=== PATIENT | female | born 1960 | race African-American/Black ===

== ENCOUNTER 2017-02-22 10:27 | Day surgery (SDC) | payer MEDICAID ==
[~2017-02-22] VITALS: Ht 160 cm; Wt 112.0 kg
[2017-02-22] MEDS ORDERED: METF10002 PO (10:42)
[2017-02-22] MEDS ORDERED: HYDR25TA PO (10:42)
[2017-02-22] MEDS ORDERED: IBUP-1509 PO (10:42)
[2017-02-22] MEDS ORDERED: LOVA40TA73 PO (10:42)
[2017-02-22] MEDS ORDERED: CYCLOPENTOLATE HCL 1% OPHTH DROPS 2ML LEFTEYE ONE (11:45)
[2017-02-22] MEDS ORDERED: TROPICAMIDE 1% OPHTH DROPS 15ML LEFTEYE ONE (11:45)
[2017-02-22] MEDS ORDERED: PHENYLEPHRINE HCL 10% OPHTH DROPS 5ML LEFTEYE ONE (11:45)
[2017-02-22] MEDS ORDERED: SODIUM CHLORIDE 0.9% 1,000 ML IV SCH (11:55)
[2017-02-22] MEDS ORDERED: LEVO25TA7 PO (12:49)
[2017-02-22] MEDS ORDERED: INSU10VI4 SQ (12:49)
[2017-02-22] MEDS ORDERED: METH50TA4 PO (12:49)
[2017-02-22] MEDS ORDERED: CYAN10009 PO (12:49)
[2017-02-22] MEDS ORDERED: XALAO BOTHEYE (12:49)
[2017-02-22] MEDS ORDERED: TIMO15DR12 OP (12:49)
[2017-02-22] MEDS ORDERED: PREDNISOLONE ACETATE 1% OPHTH DROPS 1ML ONE (13:33)
[2017-02-22] MEDS ORDERED: PHENYLEPHRINE HCL 10% OPHTH DROPS 5ML ONE (13:33)
[2017-02-22] MEDS ORDERED: BALANCED SALT IRRIG SOLN 15ML ONE (13:33)
[2017-02-22] MEDS ORDERED: NEO/POLYMYX B SULF/DEXAMETH OPHTH OINT 3.5GM ONE (13:33)
[2017-02-22] MEDS ORDERED: TETRACAINE 0.5% OPHTH DROPS 4ML ONE (13:33)
[2017-02-22] MEDS ORDERED: TROPICAMIDE 1% OPHTH DROPS 15ML ONE (13:33)
[2017-02-22] MEDS ORDERED: CYCLOPENTOLATE HCL 1% OPHTH DROPS 2ML ONE (13:33)
[2017-02-22] MEDS ORDERED: CIPROFLOXACIN 0.3% OPHTH SOLN 2.5ML ONE (13:33)
[2017-02-22] MEDS ORDERED: LIDOCAINE HCL/PF 2% 20 MG/ML 10ML VIAL ONE (13:33)
[2017-02-22] MEDS ORDERED: ONDANSETRON HCL 4MG/2ML VIAL IV PRN (13:45)
[2017-02-22] MEDS ORDERED: MEPERIDINE HCL/PF 25MG/ML CPJ IV PRN (13:45)
[2017-02-22] MEDS ORDERED: LABETALOL HCL 20MG/4ML CARPUJECT IV PRN (13:45)
[2017-02-22] MEDS ORDERED: HYDROMORPHONE HCL/PF 2MG/ML CPJ IV PRN (13:45)
== END 2017-02-22 17:00 | disposition home or self-care (01) ==
LOC: OR 10:27
PROVIDERS: ATTEND Ophthalmology
DX: T85.22XA Displacement of intraocular lens, initial encounter (principal); Y83.9 Surgical procedure, unspecified as the cause of abnormal reaction of the patient, or of later complication, without mention of misadventure at the time of the procedure; Y92.89 Other specified places as the place of occurrence of the external cause; K21.9 Gastro-esophageal reflux disease without esophagitis; E11.9 Type 2 diabetes mellitus without complications; G47.30 Sleep apnea, unspecified; E66.9 Obesity, unspecified; Z88.0 Allergy status to penicillin
CPT/HCPCS: 66825; 82962; J2250; J3010; J3490; J7030; J2704